=== PATIENT | female | born 1945 | race African-American/Black ===

== ENCOUNTER 2022-05-26 08:40 | Outpatient (CLI) | payer MEDICARE | END 2022-05-26 08:41 | disposition home or self-care (01) | LOC: CSHRAD 08:40 | PROVIDERS: ATTEND Family Medicine | DX: M50.90 Cervical disc disorder, unspecified, unspecified cervical region (principal); M47.812 Spondylosis without myelopathy or radiculopathy, cervical region | CPT/HCPCS: 72040 ==

== ENCOUNTER 2025-06-04 08:36 | Outpatient (CLI) | payer OTHER | END 2025-06-04 08:37 | disposition home or self-care (01) | LOC: CSHMAMMO 08:36 | PROVIDERS: ATTEND Family Medicine | DX: Z12.31 Encounter for screening mammogram for malignant neoplasm of breast (principal); M85.89 Other specified disorders of bone density and structure, multiple sites | CPT/HCPCS: 77063; 77067; 77080 ==